=== PATIENT | male | born 1990 | race Caucasian/White ===

== ENCOUNTER 2018-03-15 23:23 | Emergency (ER) | payer SELFPAY ==
--- NOTE | 2018-03-15 23:27 | EDPHY ---
H & P Source: Patient, RN/MD Exam Limitations: No limitations Time Seen by Provider: 03/15/18 23:24 HPI/ROS: HPI: This is a 28-year-old male who presents with Chief Complaint: M1 hold Location:psych Quality: M1 Hold Duration: unknown Signs and Symptoms: no auditory hallucinations, no visual hallucinations, + suicidal ideation with a plan, no homicidal ideation, no paranoia Timing: unknown Severity: Moderate to severe Context: Patient presents via EMS from the crisis [facility] on M1 hold as he in to their facility this evening reporting attempted suicide earlier at his residence with a plan of cutting his wrist in the bathtub to"be bleed out." Patient reports taking steps toward the plan and holding knife to his arm while in bathtub. Patient is unable to keep himself safe and"I do not trust myself." Patient admits to alcohol and marijuana use earlier today, patient is very upset about being in the emergency room and reluctant to answer any of my questions. Modifying Factors: None Comment: ROS: A comprehensive 10 system review of systems is otherwise negative aside from elements mentioned in the history of present illness. MEDICAL/SURGICAL/SOCIAL HISTORY: Medical history: Depression Surgical history: Denies Social history: Marijuana and alcohol use. Family history noncontributory. CONSTITUTIONAL: Uncooperative, tidy, adult white male awake and alert, no obvious distress HEENT: Atraumatic and normocephalic, PERRL, EOMI. Nares patent; no rhinorrhea; no nasal mucosal edema. Tympanic membranes clear. Oropharynx clear, no exudate and moist pink mucosa. Airway patent. No lymphadenopathy. No meningismus. Cardiovascular: Normal S1/S2, regular rate, regular rhythm, without murmur rub or gallop. PULMONARY/CHEST: Symmetrical and nontender. Clear to auscultation bilaterally. Good air movement. No accessory muscle usage. ABDOMEN: Soft, nondistended, nontender, no rebound, no guarding, no peritoneal signs, no masses or organomegaly. No CVAT. EXTREMITIES: 2/2 pulses, strength 5/5, no deformities, no clubbing, no cyanosis or edema. NEUROLOGICAL: no focal neuro deficits. GCS 15. SKIN: Warm and dry, no erythema. no rash. Good capillary refill. PSYCH: Poor eye contact, no flight of ideas, organized thought process, poor insight and judgment, no auditory hallucinations, no visual hallucinations, + suicidal ideation with a plan, no homicidal ideation, no paranoia (Sarita Lynn) Constitutional: Initial Vital Signs Temperature (C) 36.8 C 03/15/18 23:35 Heart Rate 80 03/15/18 23:35 Respiratory Rate 16 03/15/18 23:35 Blood Pressure 112/77 03/15/18 23:35 O2 Sat (%) 98 03/15/18 23:35 O2 Delivery Mode Room Air Allergies/Adverse Reactions: No Known Allergies Allergy (Unverified 03/16/18 00:19) Home Medications: Medication Instructions Recorded NK [No Known Home Meds] 03/16/18 Medical Decision Making ED Course/Re-evaluation: 0536: Patient is sleeping. Patient is [address]acs at 7:00 a.m. Shift change. Patient is here with depression. Suicidal ideation with plan for slurring his wrist. He is on M1 hold. Has a history of depression. (Landon Ballesteros) Vital signs reviewed and stable upon arrival. Agree with M1 hold placed at 8:58 p.m. As patient is severely mom depressed and has suicidal ideation with a plan. Labs and UDS ordered. Patient is currently calm and cooperative will not order chemical intervention. 0030: Labs reviewed and grossly unremarkable. Urine drug screen positive for marijuana. Medically clear for mental health evaluation. 0100: End of Shift. Signed over to Dr. Ballesteros. Pending mental health evaluation and final disposition. This patient was seen under the supervision of my secondary supervising physician. I evaluated care for this patient independently. Discussed this patient with Dr. Ballesteros. (Sarita Lynn) Differential Diagnosis: Differential diagnosis includes but is not limited to major depression, suicidal ideation, bipolar disorder, elida, psychosis. (Sarita Lynn) Other Provider: 0915: Patient accepted for transfer to [place]. EMTALA filled out. Patient stable. (Soto Kovacs) - Data Points Laboratory Results: Laboratory Results 03/16/18 00:00 03/16/18 00:00 Medications Given: Discontinued Medications Lorazepam (Ativan) 2 mg PO EDNOW ONE Stop: 03/15/18 23:57 Last Admin: 03/16/18 05:38 Dose: Not Given Lorazepam (Ativan) 2 mg PO EDNOW ONE Stop: 03/16/18 07:16 Last Admin: 03/16/18 07:27 Dose: 2 mg Departure - Departure Disposition: Other Psych, Not [place] Clinical Impression: Severe major depression without psychotic features, Polysubstance abuse Condition: Good
[2018-03-15] MEDS ORDERED: LORazepam 1 MG TAB PO ONE (23:56)
[2018-03-16 00:27] LABS: PLATELET COUNT 236 10^3/uL (150-400)
[2018-03-16] MEDS ORDERED: LORazepam 1 MG TAB PO ONE (07:15)
[2018-03-16 12:16] VITALS: BP 135/75
== END 2018-03-16 12:07 ==
DX: F32.2 Major depressive disorder, single episode, severe without psychotic features (principal); F12.10 Cannabis abuse, uncomplicated
CPT/HCPCS: 80305; G0480